=== PATIENT | male | born 1955 | race Caucasian/White ===

== ENCOUNTER → 2020-10-07 | Day surgery (SDC) | payer MEDICARE, OTHER ==
[~2020-10-07] VITALS: Ht 170.2 cm; Wt 87.1 kg
[~2020-10-07] MED LIST: CYMBALTA60 MG PO; DULOXETINE HCL20 MG PO; DULOXETINE HCL30 MG PO; LYRICA150 MG PO; LYRICA300 MG PO; MELOXICAM15 MG PO; OXYCODONE-ACET1 EAC1 PO; OXYCODONE-ACET1 EACH PO; PERCOCET 10-321 EACH PO; PREGABALIN150 MG PO; PREGABALIN300 MG PO
== END | disposition home or self-care (01) ==
LOC: FAS 11:52
DX: G57.73 Causalgia of bilateral lower limbs (principal); G57.93 Unspecified mononeuropathy of bilateral lower limbs; M43.26 Fusion of spine, lumbar region; F17.210 Nicotine dependence, cigarettes, uncomplicated; M19.90 Unspecified osteoarthritis, unspecified site; Z98.1 Arthrodesis status; Z90.49 Acquired absence of other specified parts of digestive tract; Z98.890 Other specified postprocedural states; Z88.8 Allergy status to other drugs, medicaments and biological substances
CPT/HCPCS: C1897; J0690; J1100; J1885; J2001; J2250; J2704; J7120